=== PATIENT | female | born 1935 | race Caucasian/White ===

== ENCOUNTER 2018-04-27 13:26 | Outpatient (CLI) | payer MEDICARE, MEDICAID ==
[~2018-04-27 13:26] MED LIST: ACET-1008 PO; CARB1TAB23 PO; CITA20TA28 PO; DILT30TA34 PO; FEXO-43 PO; FOLI-62 PO; FURO-150 PO; HYDR-4353 PO; LEVO125T PO; LIDO700A35 TOP; LINA290C PO; MELA10TA PO; METH-603 PO; OMEP20CA10 PO; ONDA4TAB6 PO; OXYGEN; SENN-173 PO; SUCR1TAB34 PO; WARF6TAB PO
== END 2018-04-27 23:59 | disposition home or self-care (01) ==
LOC: RAD 13:26
PROVIDERS: ATTEND Internal Medicine
DX: R10.9 Unspecified abdominal pain (principal); Z90.81 Acquired absence of spleen; Z90.49 Acquired absence of other specified parts of digestive tract; Z88.0 Allergy status to penicillin; Z88.8 Allergy status to other drugs, medicaments and biological substances; Z88.1 Allergy status to other antibiotic agents; Z79.899 Other long term (current) drug therapy
CPT/HCPCS: 76700